=== PATIENT | male | born 1990 | race Caucasian/White ===

== ENCOUNTER 2019-11-27 16:59 | Emergency (ER) | payer BC ==
[2019-11-27] MEDS ORDERED: Take Home: Amoxicillin/Clavulanate K 875-125 MG Tab, 2 Tab Pack PO ONE (17:30)
--- NOTE | 2019-11-28 16:19 | EDM.PDOC ---
ED HPI GENERAL MEDICAL PROBLEM - General Chief Complaint: ENT Problem Stated Complaint: PAIN IN FRONT OF R EAR Time Seen by Provider: 11/27/19 17:10 Source of Information: Reports: Patient History Limitations: Reports: No Limitations - History of Present Illness INITIAL COMMENTS - FREE TEXT/NARRATIVE: Pt. presents to ER with complaints of pain in R ear. He states that he has been experiencing this fever several days. Denies any fever or chills. No chest pain or shortness of breath. No cough. Denies any sore throat or congestion. Pt. states that he has a history "a few" episodes of OM in the past, and frequently as a child. Pt. denies any nausea, vomiting, or other symptoms. Onset: Today Onset Date: 11/27/19 Location: Reports: Head Quality: Reports: Ache Ear Pain Score (Numeric/FACES): 5 - Related Data Allergies Allergy/AdvReac Type Severity Reaction Status Date / Time coconut Allergy Facial Verified 11/27/19 17:14 Swelling lactose Allergy Abdominal Verified 11/27/19 17:14 Pain Home Meds: Home Meds . [No Known Home Meds] 11/27/19 [History] Past Medical History - Past Health History Medical/Surgical History: Denies Medical/Surgical History Social & Family History - Tobacco Use Smoking Status *Q: Never Smoker - Recreational Drug Use Recreational Drug Use: No ED ROS GENERAL - Review of Systems Review Of Systems: See Below Constitutional: Reports: No Symptoms HEENT: Reports: Ear Pain Respiratory: Reports: No Symptoms Cardiovascular: Reports: No Symptoms Endocrine: Reports: No Symptoms GI/Abdominal: Reports: No Symptoms : Reports: No Symptoms Musculoskeletal: Reports: No Symptoms Skin: Reports: No Symptoms Neurological: Reports: No Symptoms Psychiatric: Reports: No Symptoms Hematologic/Lymphatic: Reports: No Symptoms Immunologic: Reports: No Symptoms ED EXAM, GENERAL - Physical Exam Exam: See Below Exam Limited By: No Limitations General Appearance: Alert, WD/WN, No Apparent Distress Eye Exam: Bilateral Eye: EOMI Ears: Other (R TM is erythematous and bulging.) Nose: Normal Inspection, Normal Mucosa, No Blood Throat/Mouth: Normal Inspection, Normal Lips, Normal Teeth, Normal Gums, Normal Oropharynx, Normal Voice, No Airway Compromise Head: Atraumatic, Normocephalic Course - Vital Signs Last Recorded V/S: Last Vital Signs Temp 36.8 C 11/27/19 17:10 Pulse 84 11/27/19 17:10 Resp 16 11/27/19 17:10 BP 131/97 H 11/27/19 17:10 Pulse Ox 98 11/27/19 17:10 - Orders/Labs/Meds Meds: Medications Discontinued Medications Generic Name Dose Route Start Last Admin Trade Name Karen PRN Reason Stop Dose Admin Amoxicillin/Clavulanate Potassium 1 packet 11/27/19 17:30 11/27/19 17:48 Take Home: Amox/Clavulanate 875-12, 2 Tab Pac PO 11/27/19 17:31 1 packet ONETIME ONE Administration Departure - Departure Time of Disposition: 18:00 Disposition: Home, Self-Care 01 Clinical Impression: Otitis media - Discharge Information Instructions: Amoxicillin; Clavulanic Acid tablets, Otitis Media, Adult, [id number], Probiotics Referrals: PCP,None [Primary Care Provider] - Forms: ED Department Discharge Additional Instructions: Ibuprofen as needed for discomfort Augmentin 875mg 1 twice daily for 10 days Drink plenty of fluids Recheck in clinic in 10-14 days, sooner if not improving. Sepsis Event Note (ED) - Evaluation Sepsis Screening Result: No Definite Risk - Problem List Review Problem List Initiated/Reviewed/Updated: Yes - Assessment/Plan Plan: Ibuprofen as needed for discomfort Augmentin 875mg 1 twice daily for 10 days Drink plenty of fluids Recheck in clinic in 10-14 days, sooner if not improving.
== END 2019-11-27 17:48 | disposition home or self-care (01) ==
LOC: VM.ED 16:59
DX: H66.91 Otitis media, unspecified, right ear (principal); Z91.011 Allergy to milk products; Z91.018 Allergy to other foods
CPT/HCPCS: 99282; A9270; 99283